=== PATIENT | female | born 1975 | race African-American/Black ===

== ENCOUNTER 2017-10-15 13:32 | Emergency (ER) | payer OTHER | END 2017-10-15 14:38 | disposition home or self-care (01) | LOC: ER 13:32 | DX: S93.601A Unspecified sprain of right foot, initial encounter (principal); J45.909 Unspecified asthma, uncomplicated; I10 Essential (primary) hypertension; Z90.710 Acquired absence of both cervix and uterus; Z86.73 Personal history of transient ischemic attack (TIA), and cerebral infarction without residual deficits; X58.XXXA Exposure to other specified factors, initial encounter; Y93.89 Activity, other specified; Y99.8 Other external cause status; Y92.89 Other specified places as the place of occurrence of the external cause | CPT/HCPCS: 73630; 99284 ==